=== PATIENT | female | born 1970 | race Caucasian/White ===

== ENCOUNTER → 2024-12-26 12:53 | Outpatient (BNVA) | payer BC, OTHER, SELFPAY | PROVIDERS: Family Provider Family Medicine; PCP Family Medicine; Visit Provider Nurse Practitioner Women's Health | DX: Z01.419 Encounter for gynecological examination (general) (routine) without abnormal findings (principal) | CPT/HCPCS: 87624 ==

== ENCOUNTER 2024-12-31 15:11 | Outpatient (CLI) | payer BC, OTHER, SELFPAY ==
--- NOTE | 2024-12-31 15:40 | MM_ITS ---
WS: [id number] BILATERAL 3D TOMOSYNTHESIS DIGITAL SCREENING MAMMOGRAPHY WITH CAD CLINICAL INFORMATION: Z12.39 - Encounter for other screening for malignant neop... HISTORY: Screening mammogram. No current complaints. COMPARISON: 2020 TECHNIQUE: Bilateral CC and MLO views. FINDINGS: Scattered fibroglandular densities bilaterally. No suspicious focal mass, asymmetry, calcifications, or architectural distortion. No evidence of malignancy. Incidental punctate calcifications RIGHT breast MM/MM scr BI tomosynthesis [id number] IMPRESSION: DENSITY: There are scattered areas of fibroglandular density. BI-RADS: 2 - Benign. FOLLOW UP: 1 Year Follow-up Recommend return to annual screening mammography.
== END 2024-12-31 15:12 | disposition home or self-care (01) ==
PROVIDERS: Family Provider Family Medicine; PCP Nurse Practitioner Women's Health; Visit Provider Nurse Practitioner Women's Health
DX: Z12.31 Encounter for screening mammogram for malignant neoplasm of breast (principal); R92.323 Mammographic fibroglandular density, bilateral breasts; R92.1 Mammographic calcification found on diagnostic imaging of breast
CPT/HCPCS: 77063; 77067

== ENCOUNTER → 2025-05-01 11:29 | Outpatient (BNVA) | payer BC, OTHER, SELFPAY | PROVIDERS: Family Provider Family Medicine; PCP Nurse Practitioner Women's Health; Visit Provider Nurse Practitioner Women's Health | DX: Z01.419 Encounter for gynecological examination (general) (routine) without abnormal findings (principal); N95.9 Unspecified menopausal and perimenopausal disorder | CPT/HCPCS: 80053; 82306; 83036; 84443; 85025 ==

== ENCOUNTER → 2025-06-27 14:57 | Outpatient (BNVA) | payer BC, OTHER, SELFPAY | PROVIDERS: Family Provider Family Medicine; PCP Nurse Practitioner Women's Health; Visit Provider Internal Medicine Cardiovascular Disease | DX: R07.9 Chest pain, unspecified (principal) | CPT/HCPCS: 93005 ==

== ENCOUNTER 2025-07-31 09:39 | Outpatient (CLI) | payer BC, OTHER, SELFPAY ==
--- NOTE | 2025-07-31 10:00 | USCV_ITS ---
Gaby Carter Age: 54 Gender: F : 1970 Exam Date: 07/31/2025 10:31 Ordering Phys: Win Hayes MD ([email or web address]) Technologist: MIGUEL [place] [facility] [place]: H/o stent placement BP: 118 / 74 HR: 62 Rhythm: Sinus Technical Quality: Adequate MEASUREMENTS (Male / Female) Normal Values 2D ECHO LV Diastolic Diameter PLAX 5.2 cm 4.2 - 5.9 / 3.9 - 5.3 cm IVS Diastolic Thickness 0.9 cm 0.6 - 1.0 / 0.6 - 0.9 cm IVS Systolic Thickness 1.2 cm LVPW Diastolic Thickness 0.9 cm 0.6 - 1.0 / 0.6 - 0.9 cm LVPW Systolic Thickness 1.2 cm LVOT Diameter 2.0 cm LV Ejection Fraction 2D Teich 37.4 % LV Ejection Fraction MOD 4C 60.9 % LV Ejection Fraction MOD 2C 57.0 % LV Ejection Fraction 2C AL 61.0 % LA Diameter 3.5 cm RA Systolic Volume 4C AL 42.5 ml RA Systolic Volume 4C MOD 40.5 ml LA Sys Volume AL 39.5 cm cubed LA Sys Volume Index AL 18.0 cm cubed/m squared Aorta at Sinotubular Diameter 2.6 cm IVC Diameter 1.7 cm M-MODE LA Ao Ratio MM 1.6 AV Cusp Separation MM 1.6 cm DOPPLER AV Peak Velocity 139.0 cm/s LVOT Peak Velocity 104.0 cm/s AV Area Cont Eq vti 2.6 cm squared AV Area Cont Eq pk 2.4 cm squared MV Peak Velocity 79.0 cm/s MV Area PHT 3.0 cm squared Mitral E to A Ratio 0.9 TV Peak E Velocity 69.0 cm/s PV Peak Velocity 79.0 cm/s FINDINGS Left Ventricle Normal left ventricular size, systolic function and wall thickness with no regional wall motion abnormality. Left ventricular ejection fraction is 61%. Normal left ventricular diastolic function. Right Ventricle Normal right ventricular size and systolic function. RVSP could not be calculated due to incomplete tricuspid regurgitation velocity profile. Right Atrium Normal right atrial size. Left Atrium Normal left atrial size. IA Septum Normal appearance of the interatrial septum. Mitral Valve Normal mitral valve structure. No mitral valve stenosis or regurgitation. Aortic Valve No aortic valve stenosis or regurgitation. Aortic valve not well visualized. Tricuspid Valve Normal tricuspid valve structure. No tricuspid valve stenosis or regurgitation. Pulmonic Valve Normal pulmonic valve structure. No pulmonic valve stenosis or regurgitation. Pericardium No pericardial effusion. Aorta Normal diameter of the aortic root and ascending thoracic aorta. IVC Normal IVC diameter. CONCLUSIONS Normal left ventricular size, systolic function and wall thickness with ejection fraction of 61 %. Normal right ventricular size and systolic function. No significant valvular abnormalities. Win Hayes MD, FACC (Electronically Signed) Final Date: 31 July 2025 18:20 S
--- NOTE | 2025-07-31 10:45 | USCV_ITS ---
Gaby Carter Age: 54 Gender: F : 1970 Exam Date: 07/31/2025 10:46 Ordering Phys: Win Hayes MD ([email or web address]) Technologist: MARTÍN Exam Location: [facility] [place] Indication: stenosis Risk Factors: Previous Vascular Surgery: Right Brachial BP: / Left Brachial BP: / Right Left Velocity (cm/s) Spectral Plaque Velocity (cm/s) Spectral Plaque Syst/Diast Broadening Syst/Diast Broadening 89.90/ 22.10 Prox CCA 83.20 / 24.50 69.40/ 21.50 Mid CCA 54.80 / 20.00 83.70/ 20.20 Distal CCA 66.90 / 26.90 67.30/ 16.80 Prox ICA 67.10 / 24.30 72.30/ 24.50 Mid ICA 56.50 / 23.20 74.10/ 23.50 Distal ICA 72.10 / 27.50 92.10 ECA 136.60 0.80 ICA/CCA 1.00 Bi- Vertebral Antegrade directiona l 17.50/ 5.50 cm/s 53.60/ 14.30 cm/s Tri Subclavian Tri 107.7 67.60 0 FINDINGS Comparison: none available. No significant elevation of systolic or diastolic velocities. Mild turbulence in the carotid arteries. Diffuse, mild bilateral scattered calcified plaque and intimal thickening throughout the common carotid arteries and extending through the bifurcation. CONCLUSIONS Bilateral ICA stenosis less than 50%. Mild carotid atherosclerosis. Bidirectional flow right vertebral artery, may indicate proximal stenosis. Consider evaluation carotid arteries by CTA. Dr. Marissa Santos DO (Electronically Signed) Final Date: 31 July 2025 11:52 S
== END 2025-07-31 09:40 | disposition home or self-care (01) ==
PROVIDERS: PCP Family Medicine; Visit Provider Internal Medicine Cardiovascular Disease
DX: I65.23 Occlusion and stenosis of bilateral carotid arteries (principal); R93.89 Abnormal findings on diagnostic imaging of other specified body structures
CPT/HCPCS: 93306; 93880

== ENCOUNTER 2025-08-09 09:46 | Outpatient (RCR) | payer BC, OTHER, SELFPAY | END 2025-09-01 23:59 | disposition home or self-care (01) | LOC: CR 09:46 | PROVIDERS: Family Provider Family Medicine; PCP Family Medicine; Referring Provider Family Medicine; Visit Provider Family Medicine | DX: Z95.5 Presence of coronary angioplasty implant and graft (principal) | CPT/HCPCS: 93798 ==

== ENCOUNTER 2025-09-02 12:51 | Outpatient (CLI) | payer BC, OTHER, SELFPAY ==
--- NOTE | 2025-09-02 13:00 | CT_ITS ---
WS: [id number] CTA HEAD AND NECK TECHNIQUE: Contrast enhanced CTA of the head and neck with coronal and sagittal reformatted images and maximum intensity projection (MIP) images. NASCET criteria utilized. CLINICAL INFORMATION: bilat carotid stenosis COMPARISON: None. DLP: 1858.[address] scans at [facility] use at least one of these dose optimization techniques: automated exposure control; mA and/or kV adjustment per patient size (includes targeted exams where dose is matched to clinical indication); or iterative reconstruction. FINDINGS: No evidence intracranial hemorrhage or mass effect. No hydrocephalus. Normal wise-white differentiation. Paranasal sinuses and mastoid air cells are well aerated. RIGHT: No significant RIGHT ICA stenosis. Mild calcified plaque RIGHT carotid bulb extending into the ICA. RIGHT ICA is patent to the skull base. LEFT: No significant LEFT ICA stenosis. LEFT ICA is patent to the skull base. Mild calcified plaque LEFT carotid bulb. LEFT dominant vertebral artery. Smaller but patent RIGHT vertebral artery. Proximal basilar artery is patent. Persistent RIGHT [place]. Normal vascularity to the [place] territory bilaterally. INTRACRANIAL CTA: Both ICAs are patent at the skull base. Mild cavernous carotid calcification. Small RIGHT A1 segment. Normal vascularity to the [place] and MCA territories bilaterally. Cavernous carotid calcification with mild segmental narrowing LEFT greater than RIGHT cavernous carotid arteries. Moderate stenosis of the RIGHT subclavian artery origin likely accounts for bidirectional vertebral artery flow on the ultrasound compatible with early subclavian steal. Some images in this area are degraded due to beam hardening artifact from contrast injection. Small vertebral artery originates distal to the area of stenosis. CT/CT angio headneck* [id number] IMPRESSION: 1. No significant cervical ICA stenosis. 2. No flow-limiting intracranial stenosis. 3. Mild cavernous carotid calcification. 4. LEFT dominant vertebral artery. 5. Persistent RIGHT [place]. 6. 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
[2025-09-02] MEDS: iohexol 350 mg/mL 500 mL Btl (per mL) IV (13:33)
== END 2025-09-02 12:52 | disposition home or self-care (01) ==
LOC: RAD 12:52
PROVIDERS: Family Provider Family Medicine; PCP Family Medicine; Visit Provider Internal Medicine Cardiovascular Disease
DX: I65.23 Occlusion and stenosis of bilateral carotid arteries (principal); R93.89 Abnormal findings on diagnostic imaging of other specified body structures; I70.8 Atherosclerosis of other arteries
CPT/HCPCS: 70496; 70498

== ENCOUNTER → 2025-10-02 08:28 | Outpatient (BNVA) | payer BC, OTHER, SELFPAY | PROVIDERS: Family Provider Family Medicine; PCP Family Medicine; Visit Provider Family Medicine | DX: N92.0 Excessive and frequent menstruation with regular cycle (principal); I25.10 Atherosclerotic heart disease of native coronary artery without angina pectoris | CPT/HCPCS: 80053; 85025 ==